=== PATIENT | female | born 1975 | race Caucasian/White ===

== ENCOUNTER 2024-11-05 12:40 | Emergency (ER) | payer OTHER ==
[~2024-11-05] VITALS: Ht 162.6 cm; Wt 70.3 kg
[2024-11-05 12:43] VITALS: PULSE 97; RESP 18; TEMP 97.6; O2SAT 98
== END 2024-11-05 13:00 | disposition home or self-care (01) ==
LOC: ER 12:42
DX: Z04.1 Encounter for examination and observation following transport accident (principal); V03.10XA Pedestrian on foot injured in collision with car, pick-up truck or van in traffic accident, initial encounter; Y92.488 Other paved roadways as the place of occurrence of the external cause; I10 Essential (primary) hypertension
CPT/HCPCS: 99282